=== PATIENT | male | born 1995 | race Two or more races ===

== ENCOUNTER 2022-10-30 00:36 | Emergency (ER) | payer SELFPAY ==
[~2022-10-30] VITALS: Ht 167.6 cm; Wt 77.1 kg
[2022-10-30] MEDS ORDERED: LABETALOL HCL 100 MG/20 ML VIAL ONE (00:49)
[2022-10-30] MEDS ORDERED: ASPIRIN 81 MG TAB.CHEW ONE (00:49)
[2022-10-30 00:58] LABS: BASOPHILS % (AUTO) 0.1 % (0.0-2.0); EOSINOPHILS # (AUTO) 0.5 K/uL (0.0-0.7); EOSINOPHILS % (AUTO) 4.4 % (0.0-7.0); HEMOGLOBIN 15.7 g/dL (12.5-16.3); LYMPHOCYTES # (AUTO) 0.6 K/uL (0.8-4.8); LYMPHOCYTES % (AUTO) 5.5 % (20.5-51.5); MEAN CORPUSCULAR HEMOGLOBIN 30.7 uug (23.8-33.4); MEAN CORPUSCULAR HGB CONC 34 g/dL (32.5-36.3); MEAN CORPUSCULAR VOLUME 89.8 fL (73.0-96.2); MONOCYTES # (AUTO) 0.1 K/uL (0.1-1.30); MONOCYTES % (AUTO) 1.4 % (0.0-11.0); NEUTROPHILS # (AUTO) 9.1 K/uL (1.8-8.9); NEUTROPHILS % (AUTO) 88.6 % (38.5-71.5); PLATELET COUNT (AUTO) 309 K/uL (152-348); RED BLOOD CELL COUNT(AUTO) 5.13 MIL/uL (4.06-5.63); WHITE BLOOD COUNT (AUTO) 10.3 K/uL (3.6-10.2)
[2022-10-30] MEDS: IV NORMAL SALINE 1000 ML BAG IV ONE ×2 (01:00→02:30)
[2022-10-30] MEDS: LABETALOL HCL 100 MG/20 ML VIAL IV ONE (01:01)
[2022-10-30] MEDS: ASPIRIN 81 MG TAB.CHEW PO ONE (01:01)
[2022-10-30 01:14] LABS: DIFFERENTIAL COMMENT 1
[2022-10-30 01:26] LABS: THYROID STIMULATING HORMONE 2.135 mIU/mL (0.358-3.740)
[2022-10-30 01:27] LABS: ALANINE AMINOTRANSFERASE 36 U/L (16-63); ALBUMIN 4.3 g/dL (3.4-5.0); ALKALINE PHOSPHATASE 134 U/L (50-136); ASPARTATE AMINOTRANSFERASE 25 U/L (15-37); BILIRUBIN,DIRECT 0.1 mg/dL (0.0-0.2); BILIRUBIN,TOTAL 0.2 mg/dL (0.2-1.0); CALCIUM 9.5 mg/dL (8.5-10.1); CARBON DIOXIDE 17 mmol/L (21-32); CHLORIDE 106 mmol/L (98-107); CREATININE 1.4 mg/dL (0.6-1.3); GLUCOSE 131 mg/dL (74-106); POTASSIUM 3.6 mmol/L (3.5-5.1); SODIUM SERUM 142 mmol/L (136-145); TOTAL PROTEIN, SERUM 8.7 g/dL (6.4-8.2); UREA NITROGEN, BLOOD 9 mg/dL (7-18)
[2022-10-30 01:30] LABS: ACETAMINOPHEN < 10.0 ug/mL (10-30)
[2022-10-30 01:31] LABS: ETHANOL 266 MG/DL (0-10)
[2022-10-30] MEDS ORDERED: TDAP DIPH,PERTUSS,TET VAC/PF 0.5 ML DISP.SYRIN IM ONE (02:35)
[2022-10-30] MEDS: TDAP DIPH,PERTUSS,TET VAC/PF 0.5 ML DISP.SYRIN IM ONE (02:38)
[2022-10-30] MEDS ORDERED: NEOMY/BACITRA/POLYMYXIN B OINT UD PACKET TP ONE (02:43)
[2022-10-30] MEDS: NEOMY/BACITRA/POLYMYXIN B OINT UD PACKET TP ONE (03:00)
[2022-10-30 03:14] LABS: *BILIRUBIN,URIN NEGATIVE (NEGATIVE); *CLARITY,URINE CLEAR (CLEAR); *COLOR,URINE YELLOW (YELLOW); *KETONES,URINE NEGATIVE (NEGATIVE); *PROTEIN,URINE 2+ (NEGATIVE); *UROBILINOGEN,URINE 0.2 E.U./dl (NORMAL); LEUKOCYTE ESTERASE ,URINE NEGATIVE (NEGATIVE); NITRITE, URINE NEGATIVE (NEGATIVE); PH,URINE 5.5 (5.0-8.0); UGLUCOSE NEGATIVE (NEGATIVE)
[2022-10-30 03:18] LABS: *BLOOD, URINE TRACE (NEGATIVE)
[2022-10-30 03:57] LABS: *AMPHETAMINE, URINE POSITIVE (NEGATIVE); *BARBITURATE, URINE NEGATIVE (NEGATIVE); *BENZODIAZEPINE, URINE NEGATIVE (NEGATIVE); *CANNABINOID, URINE NEGATIVE (NEGATIVE); *COCCAINE, URINE NEGATIVE (NEGATIVE); *OPIATE, URINE NEGATIVE (NEGATIVE); *PHENCYCLIDINE SCREEN,URINE NEGATIVE (NEGATIVE); FENTANYL, URINE NEGATIVE (NEGATIVE)
[2022-10-30 04:22] LABS: BACTERIA,URINE NONE SEEN /HPF (NONE SEEN); RBC,URINE 0-3 /HPF (0-3); SQUAMOUS EPITHELIAL CELL,UR FEW /HPF (NONE SEEN); WBC,URINE NONE SEEN /HPF (0-3)
[2022-10-30 04:31] VITALS: BP 136/78; O2SAT 98
== END 2022-10-30 04:31 | disposition home or self-care (01) ==
LOC: ER 00:40
DX: F10.121 Alcohol abuse with intoxication delirium (principal); R00.0 Tachycardia, unspecified; E87.20 Acidosis, unspecified; R51.9 Headache, unspecified; Y90.8 Blood alcohol level of 240 mg/100 ml or more
CPT/HCPCS: 80076; 80048; 81001; 84443; 85025; 84484 ×2; 36415; 93005; 71045; 70450; 90715; 99285; 96361; 96374; 90471; 80299; 80320; 80307; J3490; J7040 ×2; 72125; A4663; G0480